=== PATIENT | male | born 2000 | race African-American/Black ===

== ENCOUNTER 2023-03-22 10:51 | Outpatient (RCR) | payer OTHER | END 2023-03-23 | disposition home or self-care (01) | PROVIDERS: ATTEND Family Medicine Sports Medicine | DX: S70.12XD Contusion of left thigh, subsequent encounter (principal) ==

== ENCOUNTER 2023-03-29 10:42 | Outpatient (RCR) | payer OTHER | END 2023-04-19 16:04 | disposition home or self-care (01) | PROVIDERS: ATTEND Family Medicine Sports Medicine | DX: S70.12XD Contusion of left thigh, subsequent encounter (principal); X58.XXXD Exposure to other specified factors, subsequent encounter ==